=== PATIENT | female | born 1990 | race Caucasian/White ===

== ENCOUNTER 2017-08-31 02:32 | Inpatient (IN) | END 2017-09-01 15:06 | disposition home or self-care (01) | DRG 854 ==

== ENCOUNTER 2017-09-12 08:40 | Emergency (ER) | END 2017-09-12 09:36 | disposition home or self-care (01) ==

== ENCOUNTER 2017-09-14 21:34 | Emergency (ER) | END 2017-09-14 23:53 | disposition home or self-care (01) ==